=== PATIENT | female | born 1985 | race Caucasian/White ===

== ENCOUNTER 2022-01-13 09:53 | Outpatient (CLI) | payer OTHER | END 2022-01-13 11:00 | disposition home or self-care (01) | LOC: NST 09:53 | PROVIDERS: ATTEND Obstetrics & Gynecology Maternal & Fetal Medicine | DX: Z34.93 Encounter for supervision of normal pregnancy, unspecified, third trimester (principal); Z3A.30 30 weeks gestation of pregnancy ==

== ENCOUNTER 2022-01-27 09:20 | Outpatient (CLI) | payer OTHER | END 2022-01-27 10:30 | disposition home or self-care (01) | LOC: NST 09:20 | PROVIDERS: ATTEND Obstetrics & Gynecology Gynecology | DX: Z34.83 Encounter for supervision of other normal pregnancy, third trimester (principal) ==

== ENCOUNTER 2022-02-07 09:32 | Outpatient (CLI) | payer OTHER | END 2022-02-07 09:48 | disposition home or self-care (01) | LOC: NST 09:32 | PROVIDERS: ATTEND Obstetrics & Gynecology | DX: Z34.83 Encounter for supervision of other normal pregnancy, third trimester (principal) ==

== ENCOUNTER 2022-02-14 12:46 | Outpatient (CLI) | payer OTHER | END 2022-02-14 14:00 | disposition home or self-care (01) | LOC: NST 12:46 | PROVIDERS: ATTEND Obstetrics & Gynecology Gynecology | DX: Z34.83 Encounter for supervision of other normal pregnancy, third trimester (principal) ==

== ENCOUNTER 2022-02-21 12:43 | Outpatient (CLI) | payer OTHER | END 2022-02-21 13:13 | disposition home or self-care (01) | LOC: NST 12:43 | PROVIDERS: ATTEND Obstetrics & Gynecology Gynecology | DX: Z34.83 Encounter for supervision of other normal pregnancy, third trimester (principal) ==

== ENCOUNTER 2023-08-02 09:05 | Outpatient (CLI) | payer OTHER ==
[~2023-08-02 09:05] MED LIST: NIFE60TA3 PO; PRENATAL TABLE1 EAC1 PO; TRANDATE300 MG PO
== END 2023-08-02 10:36 | disposition home or self-care (01) ==
LOC: NST 09:05
PROVIDERS: ATTEND Obstetrics & Gynecology
DX: Z34.83 Encounter for supervision of other normal pregnancy, third trimester (principal)

== ENCOUNTER 2023-08-30 09:43 | Outpatient (CLI) | payer OTHER | END 2023-08-30 10:17 | disposition home or self-care (01) | LOC: NST 09:43 | PROVIDERS: ATTEND Obstetrics & Gynecology Gynecology | DX: Z34.83 Encounter for supervision of other normal pregnancy, third trimester (principal) ==